=== PATIENT | female | born 1975 | race Two or more races ===

== ENCOUNTER → 2017-01-11 | Outpatient (REF) | payer MEDICAID | LOC: M LAB REF 16:16 | PROVIDERS: ATTEND Surgery | DX: E11.621 Type 2 diabetes mellitus with foot ulcer (principal); L97.509 Non-pressure chronic ulcer of other part of unspecified foot with unspecified severity ==

== ENCOUNTER 2017-05-30 12:45 | Outpatient (RCR) | payer MEDICAID | END 2017-05-31 | LOC: M PT 12:45 | PROVIDERS: ATTEND Surgery | DX: Z51.89 Encounter for other specified aftercare (principal); E11.621 Type 2 diabetes mellitus with foot ulcer; L97.509 Non-pressure chronic ulcer of other part of unspecified foot with unspecified severity ==

== ENCOUNTER 2017-06-01 13:35 | Outpatient (RCR) | payer MEDICAID | END 2017-07-01 | LOC: M PT 06-04 09:59 | DX: Z51.89 Encounter for other specified aftercare (principal); E11.621 Type 2 diabetes mellitus with foot ulcer | CPT/HCPCS: 97140 ==

== ENCOUNTER 2017-07-03 13:30 | Outpatient (RCR) | payer MEDICAID | END 2017-08-01 | LOC: M PT 13:30 | DX: Z51.89 Encounter for other specified aftercare (principal); I89.0 Lymphedema, not elsewhere classified; E11.621 Type 2 diabetes mellitus with foot ulcer | CPT/HCPCS: 97140 ==

== ENCOUNTER → 2018-09-18 | Outpatient (REF) | payer MEDICAID | LOC: M LAB REF 16:45 | PROVIDERS: ATTEND Physician Assistant | DX: E11.621 Type 2 diabetes mellitus with foot ulcer (principal) ==